=== PATIENT | female | born 1985 | race Two or more races ===

== ENCOUNTER 2018-11-09 14:10 | Inpatient (IN) | payer MEDICAID ==
--- NOTE | 2018-11-09 22:00 | HP ---
General Information - Reason for Visit contractions that started this morning and were irregular and are getting increasingly intense. - General Information Maternal Age: 33 Grav: 1 Para: 0 SAB: 0 IEA: 0 Estimated Due Date: 11/08/18 Determined By: LMP Maternal Blood Type and Rh: O Positive - Results this Serology/RPR Result: Non-Reactive Rubella Result: Immune HBsAg Result: Negative HIV Result: Negative GBS Culture Result: Negative Past Medical History Pertinent Past Medical History: Non-Contributory Pertinent Past Surgical History: None Pertinent Family History: See Records - M: osteoporosis; MGF: [place]; aunt : HTN; uncle: [place] - Antepartal Records Antepartal Records: Reviewed, Complicated by: - late transfer of care Review of Systems Constitutional: Uncomfortable CV Complaint: No Respiratory: Shortness of Breath: No Gastrointestinal: No Nausea/Vomiting, Normal Bowel Movement Genitourinary: No Dysuria, No Leaking Fluid, Spotting Musculoskeletal: No Epigastric Pain, Contractions Neurological: No Headache, No Visual Changes Movement: Normal Exam Allergies/Adverse Reactions: Allergies No Known Allergies Allergy (Verified 11/09/18 16:40) T:98.3, P:93, R:20, BP: 111/63, O2: 100% - Measurements Height: 5 ft 7 in Weight: 182 lb 14.4 oz Weight in lbs: [phone] Body Mass Index (BMI): 28.6 Pre- Weight: 167 lb Weight Gained This : 15.9 lbs and 0 ozs - Exam Breast: Breast Exam Deferred CVA: No CVA Tenderness Extremities: No Edema Heart: Normal Rhythm/Heart Sounds HEENT: No Significant Findings Lungs: Clear Bilaterally Rectal: Rectal Exam Deferred Reflexes: DTR 2+ Thyroid: No Thyromegaly - Abdominal Exam Abdomen Exam: Fundal Height Consistent with Dates - Ultrasound/Biophysical Profile Ultrasound Status: Not Done Targeted Exam Findings Estimated Weight: 8lbs Cervical Exam: 5cm Effacement: 100% Station: -1 Presenting Part: Vertex Membrane Status: Bulging Bleeding/Discharge: Bloody Show EFM Findings - External Monitor Findings Baseline Heart Rate: 135 External Monitor Findings: Accelerations Present, No Pattern of Variable or Late Decelerations, Variability Moderate, Baseline Stable Contractions: Regular, Moderate, 45-90 Seconds Contraction Frequency: 3-5 Assessment/Plan - Assessment 33 y.o. 40w1d EGA, active labor - Plan Plan: Admit - Anticipate Vaginal Delivery - Date/Time of Admission Date of Admission: 11/09/18 Time of Admission: 18:00
[2018-11-09 23:28] LABS: Hematocrit 40 % (35-47); Hemoglobin 13.5 g/dL (12.0-16.0); Mean Corpuscular HGB Conc 34 g/dL (31-36); Mean Corpuscular Hemoglobin 30 pg (27-31); Mean Corpuscular Volume 87 fL (80-97); Mean Platelet Volume 7.8 fL (7.4-10.4); Platelet Count 166 10^3/uL (150-450); Red Blood Count 4.57 10^6 /uL (3.70-4.87); Red Cell Distribution Width 16 % (10-15); White Blood Count 10.6 10^3/uL (3.5-10.8)
[2018-11-09] MEDS ORDERED: OBEPIDURAL* 250 ML EPIDURAL ONE (23:50)
[2018-11-09] MEDS ORDERED: Bupivacaine 0.25% SDV PF* 10 ML VIAL INJ ONE (23:51)
[2018-11-10] MEDS ORDERED: Lactated Ringers 1000 ML Bag* 1,000 ML IV ONE (00:17)
[2018-11-10] MEDS ORDERED: Sodium Citrate/Citric Acid* 15 ML UDC PO PRN (00:17)
[2018-11-10] MEDS ORDERED: Famotidine TAB* 20 MG PO PRN (00:17)
[2018-11-10] MEDS ORDERED: EPHEDrine (Pressors)* 50 MG/ML VIAL IV PUSH PRN (00:17)
[2018-11-10] MEDS ORDERED: Phenylephrine 40 MCG/ML SYRINGE IV PUSH PRN (00:17)
[2018-11-10] MEDS ORDERED: OBEPIDURAL* 250 ML EPIDURAL SCH (01:00)
[2018-11-10] MEDS ORDERED: Lactated Ringers 1000 ML Bag* 1,000 ML IV SCH ×2 (01:00→12:00)
--- NOTE | 2018-11-10 08:44 | PN ---
Progress Note - Progress Note Date of Service: 11/10/18 SOAP: Subjective: Pt feels occasional pressure with an urge to push but it goes away, and isn't with every contraction. Pressure is stronger when on the right side. + LOF, + Bloody show. Pt has fine pain control with epidural. Objective: FHR: 150 bpm, min-moderate variability, + accels, occasional early decels, ctx q 2-3min. Cervix: AL/100/+1 BP:122/68, P:90, T:98.8 Assessment: 33 y.o. , active labor, cat I NST Plan: Position changes and wait for a strong urge to push
--- NOTE | 2018-11-10 10:54 | PN ---
Progress Note - Progress Note Date of Service: 11/10/18 SOAP: Subjective: Pt with urge to push Objective: BP:103/55, P:112, T:98.3, FHR: 160bpm, + accels, min variability, occasional variables 10/100/+2, thick meconium Assessment: 33 y.o. , 40w2d, cat II NST, pushing effectively Plan: 1) Special care nurse called in for delivery 2) Anticipate vaginal delivery 3) Reevaluate PRN
[2018-11-10] MEDS ORDERED: Oxytocin in LR* 20 UNITS/1,000 ML BAG IVPB ONE (11:39)
[2018-11-10] MEDS ORDERED: Dibucaine 1% 28.35 GM TUBE PR PRN (12:00)
[2018-11-10] MEDS ORDERED: Glycerin ADULT SUPP PR PRN (12:00)
[2018-11-10] MEDS ORDERED: Acetaminophen TAB* 325 MG PO PRN (12:00)
[2018-11-10] MEDS ORDERED: Oxytocin in LR* 20 UNITS/1,000 ML BAG IVPB SCH (12:00)
[2018-11-10] MEDS ORDERED: Witch Hazel PAD* JAR TOPICAL PRN (12:00)
--- NOTE | 2018-11-10 12:04 | PROCNOTE ---
[facility] OB: Delivery Note - Delivery A Date of : 11/10/18 [place] Sex: Female Gestational Age in Weeks and Days at Delivery: 40 Weeks and 2 Days Delivery Method: Spontaneous Vaginal Labor: Spontaneous Amniotic Fluid: Meconium Estimated Blood Loss: 450 Anesthesia/Analgesia: CEI for Labor, Nitrous-Labor Delivered By: Marj Gudino - Nursery Level of Nursery: Regular/Bedside - Perineum Perineal Injury Comment: left labial Perineal Repair: By Delivering Practioner
[2018-11-10] MEDS ORDERED: Simethicone TAB* 80 MG TAB.CHEW PO SCH (12:30)
[2018-11-10] MEDS ORDERED: Lidocaine 1% INJ* 10 MG/ML 30 ML SDV ONE (13:58)
[2018-11-10] MEDS ORDERED: Docusate CAP* 100 MG PO SCH (14:00)
[2018-11-11] MEDS: Ibuprofen TAB* 600 MG PO PRN ×2 (01:02→10:44)
[2018-11-11] MEDS: Docusate LIQ* 100 MG/10 ML UDC PO SCH ×4 (09:00→20:44)
[2018-11-11 10:29] LABS: ABS Eosinophils 0.1 10^3/ul (0-0.6); ABS Lymphocytes 1.8 10^3/ul (1.0-4.8); ABS Monocytes 0.8 10^3/ul (0-0.8); Eosinophil % 0.5 %; Hematocrit 28 % (35-47); Hemoglobin 9.3 g/dL (12.0-16.0); Lymphocyte % 14.4 %; Mean Corpuscular HGB Conc 34 g/dL (31-36); Mean Corpuscular Hemoglobin 30 pg (27-31); Mean Corpuscular Volume 88 fL (80-97); Mean Platelet Volume 7.3 fL (7.4-10.4); Platelet Count 132 10^3/uL (150-450); Red Blood Count 3.13 10^6 /uL (3.70-4.87); Red Cell Distribution Width 16 % (10-15); White Blood Count 12.8 10^3/uL (3.5-10.8)
[2018-11-11] MEDS: Ferrous Gluconate TAB* 324 MG TAB PO SCH ×2 (10:43→20:37)
[2018-11-12] MEDS: Ferrous Gluconate TAB* 324 MG TAB PO SCH (10:50)
[2018-11-12] MEDS: Docusate LIQ* 100 MG/10 ML UDC PO SCH ×2 (10:51→16:24)
[2018-11-12 11:10] VITALS: BP 107/48
[2018-11-12] MEDS: Ibuprofen TAB* 600 MG PO PRN (16:23)
== END 2018-11-12 17:14 | disposition home or self-care (01) | DRG 560 ==
LOC: MCHOBOUT 14:10 → MCHOB 17:34
PROVIDERS: ADMIT Midwife; ATTEND Midwife
PROC: 10E0XZZ Delivery of Products of Conception, External Approach (ICD-10-PCS; principal; 2018-11-10)
PROC: 0HQ9XZZ Repair Perineum Skin, External Approach (ICD-10-PCS; 2018-11-10)
DX: O48.0 Post-term pregnancy (principal); Z37.0 Single live birth; O70.0 First degree perineal laceration during delivery; O77.0 Labor and delivery complicated by meconium in amniotic fluid; O32.2XX0 Maternal care for transverse and oblique lie, not applicable or unspecified; O90.81 Anemia of the puerperium; D64.9 Anemia, unspecified; Z3A.40 40 weeks gestation of pregnancy
CPT/HCPCS: 36415; 85025; 85027; 86850; 86900; 86901; A9270-GY; J3490